=== PATIENT | male | born 1980 | race Hispanic/Latino ===

== ENCOUNTER 2019-04-14 16:18 | Emergency (ER) | payer OTHER ==
[2019-04-14] MEDS ORDERED: ACETAMINOPHEN 325 MG TAB ONE (16:43)
== END 2019-04-14 17:22 | disposition home or self-care (01) ==
LOC: EEVIPCON 16:18 → EDH 16:18
DX: S62.392A Other fracture of third metacarpal bone, right hand, initial encounter for closed fracture (principal); Z72.0 Tobacco use; W22.01XA Walked into wall, initial encounter; Y93.89 Activity, other specified; Y92.009 Unspecified place in unspecified non-institutional (private) residence as the place of occurrence of the external cause; Y99.8 Other external cause status
CPT/HCPCS: 29125; 73130